=== PATIENT | female | born 1975 ===

== ENCOUNTER 2020-12-12 05:40 | Day surgery (SDC) | payer OTHER ==
[2020-12-12] MEDS ORDERED: ULTRACET PO (08:44)
[2020-12-12] MEDS ORDERED: MACROBID 100 M100 MG PO (08:44)
== END 2020-12-12 11:05 | disposition home or self-care (01) ==
LOC: CIR.AMB 05:40
PROVIDERS: ATTEND Obstetrics & Gynecology Gynecology
DX: N39.3 Stress incontinence (female) (male) (principal); Z20.822 Contact with and (suspected) exposure to COVID-19
CPT/HCPCS: 57288; C1771